=== PATIENT | male | born 1975 | race African-American/Black ===

== ENCOUNTER 2019-10-04 15:04 | Emergency (ER) | payer MEDICARE, MEDICAID ==
[~2019-10-04] VITALS: Ht 177.8 cm; Wt 77.0 kg
[2019-10-04 15:19] VITALS: BP 142/79
== END 2019-10-04 16:45 | disposition home or self-care (01) ==
LOC: ER 15:04
DX: T22.011D Burn of unspecified degree of right forearm, subsequent encounter (principal); Y93.89 Activity, other specified; T79.8XXD Other early complications of trauma, subsequent encounter; Y92.9 Unspecified place or not applicable; R03.0 Elevated blood-pressure reading, without diagnosis of hypertension; X08.8XXD Exposure to other specified smoke, fire and flames, subsequent encounter
CPT/HCPCS: 99283

== ENCOUNTER 2021-01-31 11:22 | Emergency (ER) | payer MEDICARE, MEDICAID ==
[~2021-01-31] VITALS: Ht 175.3 cm; Wt 77.0 kg
[2021-01-31 11:23] VITALS: BP 141/82
== END 2021-01-31 11:58 | disposition left against medical advice (07) ==
LOC: ER 11:34
DX: R07.89 Other chest pain (principal); Z53.21 Procedure and treatment not carried out due to patient leaving prior to being seen by health care provider